=== PATIENT | male | born 2000 | race Caucasian/White ===

== ENCOUNTER 2024-06-14 02:22 | Emergency (ER) | payer SELFPAY ==
[2024-06-14] MEDS: Ketorolac 30 MG/ML SDV IM ONE (02:43)
[2024-06-14] MEDS ORDERED: Acetaminophen/HYDROcodone 325-5 MG Tab PO PRN ×2 (02:47→02:49)
[2024-06-14] MEDS: Take Home: Acetaminophen/HYDROcodone 325-5 MG, 5 Tab Pack PO ONE (03:07)
== END 2024-06-14 03:13 | disposition home or self-care (01) ==
LOC: VM.ED 02:22
DX: K08.89 Other specified disorders of teeth and supporting structures (principal)
CPT/HCPCS: 96372; 99282; A9270; J1885